=== PATIENT | female | born 1995 | race African-American/Black ===

== ENCOUNTER 2016-05-13 18:29 | Emergency (ER) | payer OTHER ==
[2016-05-13 18:38] VITALS: BMI 28.0
[2016-05-13] MEDS ORDERED: ACETAMINOPHEN 500 MG TABLET (FP) PO ONE (18:38)
--- NOTE | 2016-05-13 18:38 | PDOC ---
Rapid Medical Evaluation Time Seen by Provider: 05/13/16 18:36 Medical Evaluation: 05/13/16 18:36 20 year old 17 wks complaining of cramping abdominal pain and low back pain since yesterday. No vaginal bleeding. -UA/culture -Basic labs -To Main ED for further evaluation
[2016-05-13 19:24] LABS: BASOPHIL 0.4 % (0-2.0); EOSINOPHIL 2.5 % (0-4.5); MCH 28.9 pg (25.7-33.7); MCHC 32.9 g/dl (32.0-36.0); MEAN CELL VOLUME 87.8 fl (80-96); MEAN PLT VOLUME 9.6 fl (7.5-11.1); NEUTROPHILS 67.4 % (42.8-82.8); PLATELET COUNT 233 K/MM3 (134-434); RDW 13.5 % (11.6-15.6); WHITE BLOOD COUNT 12.4 K/mm3 (4.0-10.0)
[2016-05-13 19:32] LABS: URINE APPEARANCE CLEAR; URINE BILIRUBIN NEGATIVE (NEGATIVE); URINE BLOOD NEGATIVE (NEGATIVE); URINE COLOR STRAW; URINE GLUCOSE (UA) NEGATIVE (NEGATIVE); URINE KETONE NEGATIVE (NEGATIVE); URINE NITRITE NEGATIVE (NEGATIVE); URINE PROTEIN NEGATIVE (NEGATIVE); URINE UROBILINOGEN NEGATIVE E.U./dl (0.2-1.0)
[2016-05-13 19:44] LABS: ALBUMIN 3.2 g/dl (3.4-5.0); ALK PHOS 50 U/L (45-117); ANION GAP 10 (8-16); BILIRUBIN,TOTAL 0.1 mg/dL (0.2-1.0); CALCIUM 8.9 mg/dL (8.5-10.1); CO2 24 mmol/L (21-32); CREATININE 0.6 mg/dL (0.55-1.02); GLUCOSE,RANDOM 98 mg/dL (74-106); SGOT/AST 44 U/L (15-37); SGPT/ALT 86 U/L (12-78); TOT PROT 6.9 g/dl (6.4-8.2)
[2016-05-13 19:59] LABS: URINE LEUK ESTERASE TRACE (NEGATIVE)
[2016-05-13 20:03] LABS: URINE BACTERIA RARE /hpf (NONE SEEN); URINE RBC 2 /hpf (0-3); URINE WBC 3 /hpf (3-5)
--- NOTE | 2016-05-13 20:04 | PDOC ---
History of Present Illness - General History Source: Patient <Jory Weinsteinan - Last Filed: 05/13/16 20:12> - General History Source: Patient Exam Limitations: No Limitations - History of Present Illness Initial Comments: 05/13/16 20:16 The patient is a 20 year old female, 17 weeks (), who presents to the Emergency Department today for further evaluation of abdominal pain for 2 days. The patient describes the pain as cramping and pressurized in sensation. The patient reports associated left lower back pain. The patient denies any urinary complications or vaginal bleeding. The patient denies nausea, vomiting, diarrhea, fever. The patient denies any sick contacts or allergies. <Luis Peralta - Last Filed: 05/13/16 20:16> - General Chief Complaint: Pain Stated Complaint: BACK PAIN/17 WKS Time Seen by Provider: 05/13/16 18:36 Past History - Surgical History Abdominal Surgery: Yes (HERNIA) - Reproductive History (#): 1 Para: 0 - Psycho/Social/Smoking Cessation Hx Suicidal Ideation: No Smoking History: Never smoked Information on smoking cessation initiated: No <Noe Weinstein - Last Filed: 05/13/16 20:12> <Luis Peralta - Last Filed: 05/13/16 20:16> - Past Medical History Allergies/Adverse Reactions: Allergies Allergy/AdvReac Type Severity Reaction Status Date / Time No Known Allergies Allergy Verified 05/13/16 18:39 Home Medications: Ambulatory Orders Cephalexin Monohydrate [Keflex -] 500 mg PO BID #20 capsule 05/13/16 Review of Systems - Review of Systems Able to Perform ROS?: Yes Comments:: 05/13/16 20:16 CONSTITUTIONAL: Absent: fever, chills, diaphoresis, generalized weakness, malaise, loss of appetite HEENT: Absent: rhinorrhea, nasal congestion, throat pain, throat swelling, difficulty swallowing, mouth swelling, ear pain, eye pain, visual Changes CARDIOVASCULAR: Absent: chest pain, syncope, palpitations, irregular heart rate, lightheadedness , peripheral edema RESPIRATORY: Absent: cough, shortness of breath, dyspnea with exertion, orthopnea, wheezing, stridor, hemoptysis GASTROINTESTINAL: Present: Abdominal pain, cramping, pressure. Absent: Nausea, vomiting, diarrhea, constipation, melena, hematochezia GENITOURINARY: Absent: dysuria, frequency, urgency, hesitancy, hematuria, flank pain, genital pain MUSCULOSKELETAL: Absent: myalgia, arthralgia, joint swelling SKIN: Absent: rash, itching, pallor HEMATOLOGIC/IMMUNOLOGIC: Absent: easy bleeding, easy bruising, lymphadenopathy, frequent infections ENDOCRINE: Absent: unexplained weight gain, unexplained weight loss, heat intolerance, cold intolerance NEUROLOGIC: Absent: headache, focal weakness or paresthesias, dizziness, unsteady gait, seizure, mental status changes, bladder or bowel incontinence PSYCHIATRIC: Absent: anxiety, depression, suicidal or homicidal ideation, hallucinations. <Luis Peralta - Last Filed: 05/13/16 20:16> *Physical Exam - Vital Signs Last Vital Signs Temp Pulse Resp BP Pulse Ox 98.2 F 106 H 18 159/100 98 05/13/16 18:35 05/13/16 18:35 05/13/16 18:35 05/13/16 18:35 05/13/16 18:35 <Noe Weinstein - Last Filed: 05/13/16 20:12> - Vital Signs Last Vital Signs Temp Pulse Resp BP Pulse Ox 98.2 F 106 H 18 159/100 98 05/13/16 18:35 05/13/16 18:35 05/13/16 18:35 05/13/16 18:35 05/13/16 18:35 - Physical Exam Comments: 05/13/16 20:16 GENERAL: Well developed, well nourished. Awake and alert. In no acute distress. HEENT: Normocephalic, atraumatic. PERRLA, EOMI. No conjunctival pallor. Sclerae are non -icteric. Moist mucous membranes. Oropharynx is clear. NECK: Supple. Full ROM. No JVD. Carotid pulses 2+ and symmetric, without bruits. No thyromegaly. No lymphadenopathy. CARDIOVASCULAR: Regular rate and rhythm. No murmurs, rubs, or gallops. Distal pulses are 2+ and symmetric. PULMONARY: No evidence of respiratory distress. Lungs clear to auscultation bilaterally. No wheezing, rales or rhonchi. ABDOMINAL: Soft. Non-tender. Non-distended. No rebound or guarding. No organomegaly. Normoactive bowel sounds. PELVIC: Defer to pelvic ultrasound. MUSCULOSKELETAL Normal range of motion at all joints. No bony deformities or tenderness. No CVA tenderness. EXTREMITIES: No cyanosis. No clubbing. No edema. No calf tenderness. SKIN: Warm and dry. Normal capillary refill. No rashes. No jaundice. NEUROLOGICAL: Alert, awake, appropriate. Cranial nerves 2-12 intact. No deficits to light touch and temperature in face, upper extremities and lower extremities. No motor deficits in the in face, upper extremities and lower extremities. Normoreflexic in the upper and lower extremities. Normal speech. Toes are downgoing bilaterally. Gait is normal without ataxia. PSYCHIATRIC: Cooperative. Good eye contact. Appropriate mood and affect <Luis Peralta - Last Filed: 05/13/16 20:16> ED Treatment Course - LABORATORY CBC & Chemistry Diagram: 05/13/16 19:11 05/13/16 19:11 - ADDITIONAL ORDERS Additional order review: Laboratory Results 05/13/16 19:15 Urine Color Straw Urine Appearance Clear Urine pH 6.0 Ur Specific [place] 1.009 Urine Protein Negative Urine Glucose (UA) Negative Urine Ketones Negative Urine Blood Negative Urine Nitrite Negative Urine Bilirubin Negative Urine Urobilinogen Negative Ur Leukocyte Esterase Trace H 05/13/16 19:11 RBC 3.97 MCV 87.8 MCHC 32.9 RDW 13.5 MPV 9.6 Neutrophils % 67.4 Lymphocytes % 19.8 Monocytes % 9.9 Eosinophils % 2.5 Basophils % 0.4 - Medications Given in the ED: ED Medications Discontinued Medications Generic Name Dose Route Start Last Admin Trade Name Freq PRN Reason Stop Dose Admin Acetaminophen 975 mg 05/13/16 18:38 05/13/16 18:40 Tylenol - PO 05/13/16 18:39 975 mg ONCE ONE Administration <Noe Weinstein - Last Filed: 05/13/16 20:12> - LABORATORY CBC & Chemistry Diagram: 05/13/16 19:11 05/13/16 19:11 - ADDITIONAL ORDERS Additional order review: Laboratory Results 05/13/16 05/13/16 19:15 19:11 Sodium 138 Potassium 3.7 Chloride 104 Carbon Dioxide 24 Anion Gap 10 BUN 8 Creatinine 0.6 Creat Clearance w eGFR > 60 Random Glucose 98 Calcium 8.9 Total Bilirubin 0.1 L AST 44 H ALT 86 H Alkaline Phosphatase 50 Total Protein 6.9 Albumin 3.2 L Urine Color Straw Urine Appearance Clear Urine pH 6.0 Ur Specific [place] 1.009 Urine Protein Negative Urine Glucose (UA) Negative Urine Ketones Negative Urine Blood Negative Urine Nitrite Negative Urine Bilirubin Negative Urine Urobilinogen Negative Ur Leukocyte Esterase Trace H Urine RBC 2 Urine WBC 3 Ur Epithelial Cells Rare Urine Bacteria Rare 05/13/16 19:11 RBC 3.97 MCV 87.8 MCHC 32.9 RDW 13.5 MPV 9.6 Neutrophils % 67.4 Lymphocytes % 19.8 Monocytes % 9.9 Eosinophils % 2.5 Basophils % 0.4 - Medications Given in the ED: ED Medications Discontinued Medications Generic Name Dose Route Start Last Admin Trade Name Freq PRN Reason Stop Dose Admin Acetaminophen 975 mg 05/13/16 18:38 05/13/16 18:40 Tylenol - PO 05/13/16 18:39 975 mg ONCE ONE Administration <Luis Peralta - Last Filed: 05/13/16 20:16> Medical Decision Making - Medical Decision Making 05/13/16 20:14 Dr. Weinstein: The scribe's documentation has been prepared under my direction and personally reviewed by me in its entirery. I confirm that the note above accurately reflects all work, treatment, procedures, and medical decision making performed by me. Pt found to have an EArly UTI. Pt to be discharged. Rx Keflex 500mg PO <Noe Weinstein - Last Filed: 05/13/16 20:12> *DC/Admit/Observation/Transfer - Discharge Dispostion Admit: No <Noe Weinstein - Last Filed: 05/13/16 20:12> - Attestations Scribe Attestion: 05/13/16 20:16 Documentation prepared by Luis Peralta, acting as medical claims manager for Noe Weinstein MD/. <Luis Peralta - Last Filed: 05/13/16 20:16> Diagnosis at time of Disposition: Qualifiers: Weeks of gestation: 17 weeks Qualified Code(s): Z3A.17 - 17 weeks gestation of UTI (urinary tract infection) Qualifiers: Urinary tract infection type: site unspecified Hematuria presence: without hematuria Qualified Code(s): N39.0 - Urinary tract infection, site not specified - Discharge Dispostion Disposition: HOME Condition at time of disposition: Stable - Prescriptions Prescriptions: Cephalexin Monohydrate [Keflex -] 500 mg PO BID #20 capsule - Referrals Referrals: Philip Weiner [Primary Care Provider] - Bandar Jewell MD [Staff Physician] - - Patient Instructions Printed Discharge Instructions: DI for Urinary Tract Infection (UTI), Medications and
[2016-05-13] MEDS ORDERED: CEPHALEXIN MONOHYDRATE 500 MG CAPSULE (UD) PO ONE (20:13)
[2016-05-13] MEDS ORDERED: CEPHALEXIN MONOHYDRATE 250 MG CAPSULE (FP) ONE (20:20)
[2016-05-13 20:25] VITALS: BP 139/81; PULSE 99; TEMP 97.3
== END 2016-05-13 20:26 | disposition home or self-care (01) ==
LOC: JER 18:29
DX: O23.32 Infections of other parts of urinary tract in pregnancy, second trimester (principal); Z3A.17 17 weeks gestation of pregnancy
CPT/HCPCS: 36415; 76816-TC; 80053; 81003; 81015; 85025; 87086; 87186; 99282-25

== ENCOUNTER 2016-10-08 19:55 | Inpatient (IN) | payer OTHER ==
[2016-10-08] MEDS ORDERED: AMPICILLIN - 100 ML IVPB ONE (21:40)
[2016-10-08 21:55] LABS: BASOPHIL 0.3 % (0-2.0); EOSINOPHIL 1.6 % (0-4.5); MCH 28.5 pg (25.7-33.7); MCHC 33.4 g/dl (32.0-36.0); MEAN CELL VOLUME 85.2 fl (80-96); MEAN PLT VOLUME 10.7 fl (7.5-11.1); NEUTROPHILS 63.1 % (42.8-82.8); PLATELET COUNT 172 K/MM3 (134-434); RDW 14.4 % (11.6-15.6); WHITE BLOOD COUNT 9.9 K/mm3 (4.0-10.0)
[2016-10-08 22:25] LABS: INR 1.05 (0.82-1.09); PROTHROMBIN TIME (PATIENT) 11.6 SEC (9.98-11.88)
[2016-10-08 22:28] LABS: ACTIVATED PTT 25.4 SECONDS (26.9-34.4)
[2016-10-08 22:29] LABS: ANION GAP 10 (8-16); CALCIUM 9.1 mg/dL (8.5-10.1); CO2 24 mmol/L (21-32); CREATININE 0.5 mg/dL (0.55-1.02); GLUCOSE,RANDOM 73 mg/dL (74-106)
[2016-10-08 22:54] LABS: HIV 1 & 2 AB NEGATIVE; HIV 1 AGp24 NEGATIVE
[2016-10-08 23:06] VITALS: BMI 33.9
[2016-10-09] MEDS: AMPICILLIN - 100 ML IVPB SCH ×4 (01:40→14:10)
[2016-10-09] MEDS ORDERED: DEXTROSE 5%-LACTATED RINGERS 1,000 ML IV SCH (04:00)
[2016-10-09] MEDS ORDERED: TUBERCULIN PPD 5 TU/0.1ML SYRINGE (IN PATIENT USE ONLY) ID ONE (04:00)
[2016-10-09] MEDS ORDERED: PROMETHAZINE HCL 25 MG/1 ML VIAL IVPUSH ONE (05:14)
[2016-10-09] MEDS ORDERED: BUTORPHANOL TARTRATE 1 MG/ML VIAL IVPUSH ONE (05:14)
[2016-10-09] MEDS ORDERED: OXYTOCIN 15 UNITS/ LR 250 ML 250 ML IVPB SCH (05:15)
[2016-10-09 05:38] LABS: URINE APPEARANCE CLEAR; URINE BILIRUBIN NEGATIVE (NEGATIVE); URINE BLOOD 1+ (NEGATIVE); URINE COLOR LT. YELLOW; URINE GLUCOSE (UA) NEGATIVE (NEGATIVE); URINE KETONE NEGATIVE (NEGATIVE); URINE NITRITE NEGATIVE (NEGATIVE); URINE PROTEIN NEGATIVE (NEGATIVE); URINE UROBILINOGEN 0.2 mg/dL (0.2-1.0)
[2016-10-09 05:40] LABS: URINE LEUK ESTERASE 2+ (NEGATIVE)
[2016-10-09 05:43] LABS: URINE BACTERIA RARE /hpf (NONE SEEN); URINE MUCUS RARE; URINE RBC 4 /hpf (0-3); URINE WBC 53 /hpf (3-5)
[2016-10-09 06:03] LABS: URINE MARIJUANA THC NEGATIVE ng/ml (CUTOFF=50)
--- NOTE | 2016-10-09 10:38 | HP ---
Past Medical History - Primary Care Physician PCP:: Keon Lofton (PT was examined on 10/08/16 admitted) - Admission Chief Complaint: 40 weeks, rom History of Present Illness: 20 yo f g1 po , care in [facility] c/o [place] clear fluid , mild cramps , no fever, cx 1 cm 75 vx -3 mr , nitrazine posive, clear fluid, fhr cat 1, irregular contraction History Source: Patient Limitations to Obtaining History: No Limitations - Past Medical History ...: 1 ...Para: 0 ...Term: 0 ...: 0 ...Spon : 0 ...Induced : 0 ...Multiple Gestation: 0 ...LMP: 02/02/16 ... Weeks Gestation by Dates: 40 ...EDC by Dates: 10/08/16 - Past Surgical History Hx Myomectomy: No Hx Transabdominal Cerclage: No - Smoking History Smoking history: Unknown if ever smoked Have you smoked in the past 12 months: No - Alcohol/Substance Use Hx Alcohol Use: No - Social History Usual Living Arrangement: Yes: With Spouse History of Recent Travel: No Home Medications - Allergies Allergies/Adverse Reactions: Allergies Allergy/AdvReac Type Severity Reaction Status Date / Time No Known Allergies Allergy Verified 05/13/16 18:39 - Home Medications Home Medications: Ambulatory Orders Cephalexin Monohydrate [Keflex -] 500 mg PO BID #20 capsule 05/13/16 Vit #108/Iron/FA [ One Tablet] 1 tab PO DAILY 10/09/16 Ibuprofen [Motrin -] 600 mg PO QID #28 tablet 10/10/16 Review of Systems - Review of Systems Constitutional: reports: No Symptoms Eyes: reports: No Symptoms HENT: reports: No Symptoms Neck: reports: No Symptoms Cardiovascular: reports: No Symptoms Respiratory: reports: No Symptoms Gastrointestinal: reports: No Symptoms Genitourinary: reports: No Symptoms Breasts: reports: No Symptoms Reported Musculoskeletal: reports: No Symptoms Integumentary: reports: No Symptoms Neurological: reports: No Symptoms Endocrine: reports: No Symptoms Hematology/Lymphatic: reports: No Symptoms Psychiatric: reports: No Symptoms Physical Exam - Maternity Vital Signs: Vital Signs Temperature 98.2 F 10/09/16 08:00 Pulse Rate 94 H 10/09/16 09:00 Respiratory Rate 20 10/09/16 09:00 Blood Pressure 119/84 10/09/16 09:00 O2 Sat by Pulse Oximetry (%) Constitutional: Yes: Well Nourished, No Distress, Calm Eyes: Yes: WNL, Conjunctiva Clear, EOM Intact HENT: Yes: WNL, Atraumatic, Normocephalic Neck: Yes: WNL, Supple, Trachea Midline Cardiovascular: Yes: WNL, Regular Rate and Rhythm Breast(s): Yes: WNL - Abdominal Exam/OB Fundal Height: 40 Number of Fetuses: Single Presentation: Vertex Contractions: Yes Regularity: Irregular Intensity: Moderate Monitor Mode: External Heart Rate Location: [facility] Category: I Accelerations: Uniform Decelerations: None - Vaginal Exam/OB Vaginal Bleediing: No Speculum Exam: Yes (gross AF leakage) Dilatation (cm): 1 cm Effacement (%): 70 Amniotic Membrane Status: Ruptured Nitrazine Test: Positive Amniotic Fluid: Yes: Clear Presentation: Vertex/Position Station: -3 - Physical Exam Musculoskeletal: Yes: WNL Edema: LLE: Trace, RLE: Trace Psychiatric: Yes: WNL - Labs Lab Results: CBC, BMP 10/08/16 21:20 10/08/16 21:20 Problem List - Problems (1) 40 weeks gestation of Code(s): Z3A.40 - 40 WEEKS GESTATION OF (2) membrane rupture Code(s): [id number] - Assessment/Plan admit, fh monitoring, iv antibiotics , GBS not known, expectant management
[2016-10-09] MEDS: FENTANYL/BUPIVACAINE/NS/PF - PCEA - 50 ML DISP.SYRIN EP SCH (12:30)
--- NOTE | 2016-10-09 12:31 | PN ---
Progress Note (short form) - Note Progress Note: cx 5 cm 75 vx -2 mr. fhr cat 1wanrs epidural Problem List - Problems (1) 40 weeks gestation of Code(s): Z3A.40 - 40 WEEKS GESTATION OF (2) membrane rupture Code(s): KDA9619 -
[2016-10-09] MEDS: D5W-LR W/ 20 UNITS OXYTOCIN 1,000 ML IV SCH ×2 (15:40→17:07)
[2016-10-09] MEDS ORDERED: BENZOCAINE 28 GM HEMORRHOIDAL OINTMENT TP PRN (15:57)
[2016-10-09] MEDS ORDERED: WITCH HAZEL 50% (TUCKS) 40 PAD/JAR PAD TP PRN (15:57)
[2016-10-09] MEDS ORDERED: oxyCODONE HCL 5 MG TABLET PO PRN (15:57)
[2016-10-09] MEDS ORDERED: BISACODYL 10 MG SUPP.RECT RC PRN (15:57)
[2016-10-09] MEDS ORDERED: BENZOCAINE 20% 57 GM BOTTLE TP PRN (15:57)
[2016-10-09] MEDS ORDERED: METHYLERGONOVINE MALEATE 0.2 MG/1 ML AMP IM PRN (15:57)
[2016-10-09] MEDS: IBUPROFEN 600 MG TABLET (FP) PO PRN ×2 (16:18→21:52)
[2016-10-09] MEDS: ACETAMINOPHEN 325 MG TABLET (FP) PO PRN ×2 (16:18→21:52)
[2016-10-09 16:20] LABS: ARTERIAL BLD GAS O2 SATURATION 37.9 % (90-98.9); ARTERIAL BLOOD GAS BASE EXCESS 0.3 meq/l (-2-2); ARTERIAL BLOOD GAS HCO3 27.7 meq/L (22-26); ARTERIAL BLOOD GAS PO2 21.8 mmHg (80-100); ARTERIAL BLOOD GAS pH 7.31 (7.35-7.45)
[2016-10-09 16:26] LABS: VENOUS PH 7.37 (7.32-7.42)
[2016-10-09] MEDS: FERROUS SO4 325 MG TABLET (FP) PO SCH (21:51)
[2016-10-10] MEDS: AMPICILLIN - 100 ML IVPB SCH ×2 (02:07→02:55)
[2016-10-10] MEDS: ACETAMINOPHEN 325 MG TABLET (FP) PO PRN ×2 (08:29→23:41)
[2016-10-10] MEDS: FERROUS SO4 325 MG TABLET (FP) PO SCH ×2 (08:29→17:58)
[2016-10-10] MEDS: IBUPROFEN 600 MG TABLET (FP) PO PRN ×2 (08:30→23:41)
[2016-10-10] MEDS: PRENATAL VITAMINS W/ FOLIC ACID TABLET (FP) PO SCH (09:44)
[2016-10-10 11:14] LABS: BASOPHIL 0.4 % (0-2.0); EOSINOPHIL 1.2 % (0-4.5); MCH 28.1 pg (25.7-33.7); MCHC 32.9 g/dl (32.0-36.0); MEAN CELL VOLUME 85.3 fl (80-96); MEAN PLT VOLUME 10.8 fl (7.5-11.1); NEUTROPHILS 69.6 % (42.8-82.8); PLATELET COUNT 192 K/MM3 (134-434); RDW 14.8 % (11.6-15.6); WHITE BLOOD COUNT 11.5 K/mm3 (4.0-10.0)
--- NOTE | 2016-10-10 12:26 | PN ---
Progress Note (short form) - Note Progress Note: ppd 1 doing well, no c/o no excess vaginal bleeding CBC, BMP 10/10/16 10:48 10/08/16 21:20 Last Vital Signs Temp Pulse Resp BP Pulse Ox 98.2 F 97 H 20 109/71 100 10/10/16 02:00 10/10/16 02:00 10/10/16 02:00 10/10/16 02:00 10/09/16 16:45 abdomen soft, non tender ,uterus firm lochia mild no calf tenderness plan ambulate, advance diet Problem List - Problems (1) 40 weeks gestation of Code(s): Z3A.40 - 40 WEEKS GESTATION OF (2) membrane rupture Code(s): [id number] -
[2016-10-10] MEDS: FENTANYL/BUPIVACAINE/NS/PF - PCEA - 50 ML DISP.SYRIN EP SCH (19:07)
--- NOTE | 2016-10-11 07:54 | DS ---
Physical Exam-ROLLOUT MANAGER Vital Signs: Vital Signs Temperature 98.6 F 10/10/16 22:00 Pulse Rate 88 10/10/16 22:00 Respiratory Rate 18 10/10/16 22:00 Blood Pressure 127/63 10/10/16 22:00 O2 Sat by Pulse Oximetry (%) 100 10/09/16 16:45 Constitutional: Yes: Well Nourished, No Distress, Calm Eyes: Yes: WNL, Conjunctiva Clear, EOM Intact HENT: Yes: WNL, Atraumatic, Normocephalic Neck: Yes: WNL, Supple, Trachea Midline Cardiovascular: Yes: WNL, Regular Rate and Rhythm Respiratory: Yes: WNL, Regular, CTA Bilaterally Gastrointestinal: Yes: WNL ...Rectal Exam: Yes: WNL Renal/: Yes: WNL ....Post : Yes: Uterus firm, Uterus non-tender, Slight lochia rubra Breast(s): Yes: WNL Musculoskeletal: Yes: WNL Extremities: Yes: WNL Integumentary: Yes: WNL Neurological: Yes: WNL, Alert, Oriented ...Motor Strength: WNL Psychiatric: Yes: WNL, Alert, Oriented Labs: CBC, BMP 10/10/16 10:48 10/08/16 21:20 Delivery - Delivery Vaginal Delivery: Spontaneous (no complication) Type of Anesthesia: Local, Epidural Episiotomy/Laceration: Midline EBL (cc): 300 Delivery, Single - Stages of Labor Date 1st Stage Initiatied: 10/08/16 Time 1st Stage Initiated: 19:00 Date 2nd Stage Initiated: 10/09/16 Time 2nd Stage Initiated: 15:30 Date of Delivery: 10/09/16 Time of Delivery: 15:37 Time Placenta Delivered: 15:40 Placenta: Yes: Spontaneous - Condition of Infant Escort Car Driver/Special Events Planner Present: No Gender: Male Weight: 8 lb 6 oz Position: Left, OA Total Hours ROM (Hrs/Mins): 20hrs 40min - 1 Minute Total Score: 9 5 Minutes Total Score: 10 - Feeding Plan Initial Plan: Elected not to breastfeed exclusively throughout hospitalization Discharge Summary Reason For Visit: LABOR Current Active Problems 40 weeks gestation of (Acute) membrane rupture (Acute) Procedures: Principal: Hospital Course: uneventful Condition: Good - Instructions Diet, Activity, Other Instructions: regular diet, follow up [facility] 4weeks Referrals: Keon Lofton MD [Staff Physician] - Disposition: HOME - Home Medications Comprehensive Discharge Medication List: Ambulatory Orders Cephalexin Monohydrate [Keflex -] 500 mg PO BID #20 capsule 05/13/16 Vit #108/Iron/FA [ One Tablet] 1 tab PO DAILY 10/09/16 Ibuprofen [Motrin -] 600 mg PO QID #28 tablet 10/10/16
[2016-10-11] MEDS: FERROUS SO4 325 MG TABLET (FP) PO SCH (08:00)
[2016-10-11] MEDS: PRENATAL VITAMINS W/ FOLIC ACID TABLET (FP) PO SCH (09:20)
[2016-10-11 11:51] VITALS: BP 111/67; PULSE 83; TEMP 98.4
[2016-10-11] MEDS ORDERED: SENNOSIDES/DOCUSATE COMBO (SENNA PLUS) TABLET (UD) PO PRN (22:00)
== END 2016-10-11 13:15 | disposition home or self-care (01) | DRG 560 ==
LOC: JLDR 19:55 → J3W 10-09 17:20
PROVIDERS: ADMIT Obstetrics & Gynecology; ATTEND Obstetrics & Gynecology
PROC: 10E0XZZ Delivery of Products of Conception, External Approach (ICD-10-PCS; principal; 2016-10-09)
PROC: 0W8NXZZ Division of Female Perineum, External Approach (ICD-10-PCS; 2016-10-09)
PROC: 30233S1 Transfusion of Nonautologous Globulin into Peripheral Vein, Percutaneous Approach (ICD-10-PCS; 2016-10-10)
DX: O48.0 Post-term pregnancy (principal); Z3A.40 40 weeks gestation of pregnancy; Z37.0 Single live birth
CPT/HCPCS: 36415; 36600; 59409; 80048; 80307; 81003; 81015; 82803; 85025; 85461; 85610; 85730; 86593; 86762; 86850; 86900; 86901; 86999; 87340; 87389

== ENCOUNTER 2017-01-19 08:25 | Emergency (ER) | payer OTHER ==
[2017-01-19 08:47] VITALS: BP 131/87; PULSE 93; TEMP 98.9; BMI 28.2
--- NOTE | 2017-01-19 09:09 | PDOC ---
History of Present Illness - General Chief Complaint: Shoulder Dislocation Stated Complaint: DISLOCATED RT SHOULDER Time Seen by Provider: 01/19/17 08:57 History Source: Patient Exam Limitations: No Limitations - History of Present Illness Initial Comments: 01/19/17 16:38 21 yr female BBEMS for right shoulder pain. Pt states she rolled over last night felt her shoulder "pop out" she popped it back in. Pt states history of frequent shoulder dislocations. Pt has FROM on arrival. Occurred: reports: this morning Severity: reports: mild Upper Extremity Pain Location: right: shoulder Past History - Past Medical History Allergies/Adverse Reactions: Allergies Allergy/AdvReac Type Severity Reaction Status Date / Time No Known Allergies Allergy Verified 01/19/17 08:35 Home Medications: Ambulatory Orders NK [No Known Home Medication] 01/19/17 Asthma: No Cancer: No Cardiac Disorders: No COPD: No DVT: No Diabetes: No HTN: No Seizures: No Thyroid Disease: No - Surgical History Abdominal Surgery: Yes (HERNIA) - Reproductive History (#): 1 Para: 0 - Immunization History Immunization Up to Date: Yes - Suicide/Smoking/Psychosocial Hx Smoking History: Unknown if ever smoked Have you smoked in the past 12 months: No Information on smoking cessation initiated: No Hx Alcohol Use: No Drug/Substance Use Hx: No Substance Use Type: None Hx Substance Use Treatment: No Review of Systems - Review of Systems Able to Perform ROS?: Yes Is the patient limited Welsh proficient: No Constitutional: No: Symptoms Reported HEENTM: No: Symptoms Reported Respiratory: No: Symptoms reported Cardiac (ROS): No: Symptoms Reported ABD/GI: No: Symptoms Reported : No: Symptoms Reported Musculoskeletal: Yes: Symptoms Reported *Physical Exam - Vital Signs Last Vital Signs Temp Pulse Resp BP Pulse Ox 98.9 F 93 H 17 131/87 99 01/19/17 08:35 01/19/17 08:35 01/19/17 08:35 01/19/17 08:35 01/19/17 08:35 - Physical Exam General Appearance: Yes: Nourished HEENT: positive: EOMI, LILIAN Neck: positive: Supple Respiratory/Chest: positive: Lungs Clear, Normal Breath Sounds Cardiovascular: positive: Regular Rhythm, Regular Rate Extremity: positive: Normal Capillary Refill, Normal Inspection, Normal Range of Motion, Other (right shoulder without obvious trauma, FROM of the arm no limitations, nv intact. ). negative: Tender, Swelling, Inflammation Integumentary: positive: Normal Color, Dry, Warm Neurologic: positive: Fully Oriented, Alert, Normal Mood/Affect, Normal Response , Motor Strength 5/5 Procedures - Splinting Sling: Yes (right arm sling ) Medical Decision Making - Medical Decision Making 01/19/17 16:39 cc: right shoulder pain after "popped out" pt states this is a common occurrence has not seen an orthopedist. will place sling, pt has FROM no limitations nv intact, no bony tenderness refer to ortho pt agrees with plan all questions asked and answered *DC/Admit/Observation/Transfer Diagnosis at time of Disposition: Right shoulder strain Qualifiers: Encounter type: initial encounter Qualified Code(s): S46.911A - Strain of unspecified muscle, fascia and tendon at shoulder and upper arm level, right arm , initial encounter - Discharge Dispostion Disposition: HOME Condition at time of disposition: Improved - Referrals Referrals: Bib Rivera MD [Staff Physician] - Kennedy Harrell MD [Staff Physician] - - Patient Instructions Printed Discharge Instructions: How to Use a Sling Additional Instructions: follow up with the orthopedist Dr. Harrell or or for follow up call today to make appointment make sure thry take your insurance use the sling at all times except to bathe and sleep but you should use it during the day for the next 3-5 days apply ice to the area every 2hrs for 20 minutes while awake for the next 2 days take motrin (over the counter ibuprofen, advil or motrin) 400mg-600mg as needed every 6hrs for pain return if any worsening symptoms - Post Discharge Activity
[2017-01-19] MEDS ORDERED: IBUPROFEN 400 MG TABLET (FP) PO ONE (09:12)
[2017-01-19] MEDS ORDERED: IBUPROFEN 600 MG TABLET (FP) PO ONE (09:12)
== END 2017-01-19 09:17 | disposition home or self-care (01) ==
LOC: JERFT 08:25
DX: S46.811A Strain of other muscles, fascia and tendons at shoulder and upper arm level, right arm, initial encounter (principal); X50.1XXA Overexertion from prolonged static or awkward postures, initial encounter; Y93.89 Activity, other specified; Y92.032 Bedroom in apartment as the place of occurrence of the external cause
CPT/HCPCS: 99281-25

== ENCOUNTER 2017-06-07 12:18 | Emergency (ER) | payer OTHER ==
[2017-06-07 12:38] VITALS: BP 121/75; PULSE 103; TEMP 98.3; BMI 29.0
[2017-06-07] MEDS ORDERED: ACETAMINOPHEN 500 MG TABLET (FP) PO ONE (13:49)
[2017-06-07] MEDS ORDERED: ACETAMINOPHEN 325 MG TABLET (FP) ONE (13:53)
[2017-06-07 13:59] LABS: URINE APPEARANCE CLEAR; URINE BILIRUBIN NEGATIVE (<2.0 mg/dL); URINE BLOOD NEGATIVE (NEGATIVE); URINE COLOR YELLOW; URINE GLUCOSE (UA) NEGATIVE (NEGATIVE); URINE KETONE NEGATIVE (NEGATIVE); URINE LEUK ESTERASE NEGATIVE (NEGATIVE); URINE NITRITE NEGATIVE (NEGATIVE); URINE PROTEIN NEGATIVE (NEGATIVE); URINE UROBILINOGEN NEGATIVE mg/dL (0.2-1.0)
[2017-06-07 14:03] LABS: HCG,QUALITATIVE URINE NEGATIVE
--- NOTE | 2017-06-07 14:15 | PDOC ---
History of Present Illness - General Chief Complaint: Pain, Acute Stated Complaint: DIZZINESS, ABD PAIN Time Seen by Provider: 06/07/17 12:58 History Source: Patient Exam Limitations: No Limitations - History of Present Illness Initial Comments: 06/07/17 13:09 21-year-old female with no past medical history presents to the ED with complaints of generalized abdominal cramping for the past 3-4 days associated with myalgia, chills 2 episodes of loose stool, and mild frontal headache. Patient also states was concerned that she might be but took a home test which was negative. Patient denies sore throat, ear pain, chest pain, shortness of breath, cough, nausea, vomiting, urinary complaints or rash. Patient does state had a UTI approximately 2 weeks ago but completed the antibiotics and has no complaints Timing/Duration: other Severity: moderate Associated Symptoms: reports: fever/chills (myalgia), headaches (mild frontal). denies: nausea/vomiting, shortness of breath Past History - Travel Traveled outside of the country in the last 30 days: No - Past Medical History Allergies/Adverse Reactions: Allergies Allergy/AdvReac Type Severity Reaction Status Date / Time No Known Allergies Allergy Verified 06/07/17 12:38 Home Medications: Ambulatory Orders NK [No Known Home Medication] 01/19/17 Asthma: No Cancer: No Cardiac Disorders: No COPD: No DVT: No Diabetes: No HTN: No Seizures: No Thyroid Disease: No - Surgical History Abdominal Surgery: Yes (HERNIA) - Reproductive History (#): 1 Para: 0 - Immunization History Immunization Up to Date: Yes - Suicide/Smoking/Psychosocial Hx Smoking History: Never smoked Have you smoked in the past 12 months: No Hx Alcohol Use: No Drug/Substance Use Hx: No Substance Use Type: None Hx Substance Use Treatment: No Patient Lives Alone: No Lives with/in: parents Review of Systems - Review of Systems Able to Perform ROS?: No Constitutional: Yes: Chills, Weakness. No: Fever, Loss of Appetite HEENTM: No: Symptoms Reported Respiratory: No: Symptoms reported Cardiac (ROS): No: Symptoms Reported ABD/GI: Yes: Diarrhea, Abdominal cramping. No: Poor Appetite, Poor Fluid Intake : No: Symptoms Reported Musculoskeletal: Yes: Joint Pain ( generalized), Muscle Pain (generalized) Neurological: Yes: Headache (frontal throbbing mild) Hematologic/Lymphatic: No: Symptoms Reported *Physical Exam - Vital Signs Last Vital Signs Temp Pulse Resp BP Pulse Ox 98.3 F 103 H 16 121/75 100 06/07/17 12:35 06/07/17 12:35 06/07/17 12:35 06/07/17 12:35 06/07/17 12:35 - Physical Exam General Appearance: Yes: Nourished, Appropriately Dressed. No: Apparent Distress HEENT: positive: LILIAN, TMs Normal, Pharyngeal Erythema (3 + tonsills jhon). negative: EOMI, Pale Conjunctivae Neck: positive: Supple, Lymphadenopathy (R), Lymphadenopathy (L) (upper cervical ) Respiratory/Chest: positive: Lungs Clear, Normal Breath Sounds. negative: Respiratory Distress, Accessory Muscle Use Cardiovascular: positive: Regular Rhythm, Tachycardia. negative: Murmur Gastrointestinal/Abdominal: positive: Soft, Tenderness (mild epigastric, no ruq or rlq tenderness) Integumentary: positive: Normal Color, Warm, Moist Neurologic: positive: Motor Strength 5/5 (ambulatory) ED Treatment Course - ADDITIONAL ORDERS Additional order review: Laboratory Results 06/07/17 13:44 Urine Color Yellow Urine Appearance Clear Urine pH 6.0 Ur Specific [place] 1.019 Urine Protein Negative Urine Glucose (UA) Negative Urine Ketones Negative Urine Blood Negative Urine Nitrite Negative Urine Bilirubin Negative Urine Urobilinogen Negative Ur Leukocyte Esterase Negative Urine HCG, Qual Negative - Medications Given in the ED: ED Medications Discontinued Medications Generic Name Dose Route Start Last Admin Trade Name Freq PRN Reason Stop Dose Admin Acetaminophen 975 mg 06/07/17 13:49 06/07/17 13:54 Tylenol - PO 06/07/17 13:50 975 mg ONCE ONE Administration Medical Decision Making - Medical Decision Making 06/07/17 13:17 Patient here with various complaints including generalized abdominal cramping with epigastric tenderness on exam. Patient also with complaints of mild frontal headache with no neural findings. Patient also complaining of myalgia or arthralgia with loose stool 2. Patient with pharyngeal erythema. Patient ordered a urinalysis urine to rule out UTI to to recent infection along with . Patient also ordered for rapid sharp secondary to pharyngeal erythema and influenza secondary to myalgia or arthralgia and prevalence of influenza the presently 06/07/17 14:19 Laboratory Tests 06/07/17 13:44 Urine Glucose (UA) Negative Urine Ketones Negative Urine Nitrite Negative Ur Leukocyte Esterase Negative Urine HCG, Qual Negative 06/07/17 14:36 Influenza -. 06/07/17 14:56 strep -. 06/07/17 15:35 Labs pending. pt states can not wait due to childcare. Pt will sign out AMA *DC/Admit/Observation/Transfer Diagnosis at time of Disposition: Myalgia, Epigastric abdominal pain - Discharge Dispostion Disposition: AGAINST MEDICAL ADVICE Condition at time of disposition: Unchanged/Unknown - Referrals - Patient Instructions Printed Discharge Instructions: DI for Viral Syndrome Additional Instructions: Your strep and influenza along with urine were -. Your labs are pending. I recommend that you take motrin for discomfort, drink plenty of fluids, and eat bland foods x 72 hrs. You may return to the Ed at any given time. - Post Discharge Activity
[2017-06-07 16:06] LABS: BASO % 0.4 % (0-2.0); EOS % 1.6 % (0-4.5); HEMATOCRIT 39.4 % (32.4-45.2); HEMOGLOBIN 13.4 GM/dL (10.7-15.3); LYMPH % 16.5 % (8-40); MCH 29.2 pg (25.7-33.7); MCHC 33.9 g/dl (32.0-36.0); MEAN CELL VOLUME 86.2 fl (80-96); MEAN PLT VOLUME 10.3 fl (7.5-11.1); MONO % 8.9 % (3.8-10.2); NEUT % 72.6 % (42.8-82.8); PLATELET COUNT 259 K/MM3 (134-434); RBC 4.57 M/mm3 (3.60-5.2); RDW 14.3 % (11.6-15.6); WHITE BLOOD COUNT 10.2 K/mm3 (4.0-10.0)
[2017-06-07 16:09] LABS: ALBUMIN 3.7 g/dl (3.4-5.0); ALK PHOS 76 U/L (45-117); ANION GAP 5 (8-16); BILIRUBIN,TOTAL 0.2 mg/dL (0.2-1.0); BLOOD UREA NITROGEN 10 mg/dL (7-18); CALCIUM 8.4 mg/dL (8.5-10.1); CHLORIDE 109 mmol/L (98-107); CO2 26 mmol/L (21-32); CREATININE 0.7 mg/dL (0.55-1.02); GLUCOSE,RANDOM 88 mg/dL (74-106); SGOT/AST 15 U/L (15-37); SGPT/ALT 19 U/L (12-78); SODIUM 140 mmol/L (136-145); TOT PROT 7.5 g/dl (6.4-8.2)
== END 2017-06-07 15:38 | disposition left against medical advice (07) ==
LOC: JER 12:18
DX: R10.13 Epigastric pain (principal); M79.1 Myalgia; L54 Erythema in diseases classified elsewhere
CPT/HCPCS: 36415; 80053; 81003; 84703; 85025; 87070; 87430; 87804; 99282-25

== ENCOUNTER 2018-03-15 15:48 | Emergency (ER) | payer OTHER ==
[2018-03-15 16:05] VITALS: BP 117/71; PULSE 89; TEMP 98.1; BMI 28.2
[2018-03-15] MEDS ORDERED: IBUPROFEN 600 MG TABLET (FP) PO ONE ×2 (16:49→16:59)
--- NOTE | 2018-03-15 16:56 | PDOC ---
History of Present Illness - General Chief Complaint: Pain, Acute Stated Complaint: RT WRIST PAIN Time Seen by Provider: 03/15/18 16:34 History Source: Patient Exam Limitations: No Limitations Past History - Past Medical History Allergies/Adverse Reactions: Allergies Allergy/AdvReac Type Severity Reaction Status Date / Time No Known Allergies Allergy Verified 03/15/18 16:32 Home Medications: Ambulatory Orders NK [No Known Home Medication] 03/15/18 Asthma: No Cancer: No Cardiac Disorders: No COPD: No DVT: No Diabetes: No HTN: No Seizures: No Thyroid Disease: No - Surgical History Abdominal Surgery: Yes (HERNIA) - Reproductive History (#): 1 Para: 0 - Immunization History Immunization Up to Date: Yes - Suicide/Smoking/Psychosocial Hx Smoking History: Never smoked Have you smoked in the past 12 months: No Number of Cigarettes Smoked Daily: 1 Information on smoking cessation initiated: No Hx Alcohol Use: No Drug/Substance Use Hx: No Substance Use Type: None Hx Substance Use Treatment: No *Physical Exam - Vital Signs Last Vital Signs Temp Pulse Resp BP Pulse Ox 98.1 F 89 18 117/71 99 03/15/18 16:02 03/15/18 16:02 03/15/18 16:02 03/15/18 16:02 03/15/18 16:02 - Physical Exam General Appearance: No: Apparent Distress Musculoskeletal: positive: Other (No deformity or swelling of R wrist, no change in skin color, no snuffbox tenderness, mild pain with extension and flexion of R wrist, no pain along finger joints) Integumentary: positive: Normal Color Neurologic: positive: Fully Oriented, Alert, Normal Mood/Affect Moderate Sedation - Procedure Monitoring Vital Signs: Procedure Monitoring Vital Signs Temperature 98.1 F 03/15/18 16:02 Pulse Rate 89 03/15/18 16:02 Respiratory Rate 18 03/15/18 16:02 Blood Pressure 117/71 03/15/18 16:02 O2 Sat by Pulse Oximetry (%) 99 03/15/18 16:02 Medical Decision Making - Medical Decision Making 22 y/o F with no sig pmh, R-handed, presents with chronic R wrist pain for >1 year, worsening yesterday. Took Advil yesterday without relief. Has not yet seen anyone regarding this pain. 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 Likely tendonitis R wrist nevaeh-wrapped for support; advised to get wrist splint 03/15/18 16:53 *DC/Admit/Observation/Transfer Diagnosis at time of Disposition: Right wrist tendonitis - Discharge Dispostion Disposition: HOME Condition at time of disposition: Stable Decision to Admit order: No - Referrals Referrals: Philip Weiner [Primary Care Provider] - Remberto Verduzco DO [Staff Physician] - Call tomorrow - Patient Instructions Printed Discharge Instructions: DI for Tendinitis Additional Instructions: Thank you for choosing [facility]. It was a pleasure taking care of you. Likely you have wrist tendonitis. You may take Tylenol 650 mg or Motrin 600 mg every 4 hours by mouth as needed for mild to moderate pain. Take Motrin with food. Do not take more than 4000 mg of Tylenol in 1 day. Recommend using a wrist splint for better support of wrist. You were referred to orthopedics - please call for follow-up Return to the Emergency Department if your symptoms worsen or persist or have other concerning symptoms. - Post Discharge Activity Forms/Work/School Notes: Back to Work
== END 2018-03-15 17:08 | disposition home or self-care (01) ==
LOC: JERFT 15:48
PROC: 2W3CX1Z Immobilization of Right Lower Arm using Splint (ICD-10-PCS; principal; 2018-03-15)
DX: M77.9 Enthesopathy, unspecified (principal)
CPT/HCPCS: 29125; 99281-25

== ENCOUNTER 2018-07-28 01:17 | Emergency (ER) | payer OTHER ==
[2018-07-28 01:42] VITALS: BP 130/90; PULSE 110; TEMP 98.5; BMI 24.2
[2018-07-28] MEDS ORDERED: ALBUTEROL SO4 2.5/IPRATROPIUM 0.5 INH SOL 3 ML VIAL.NEB. NEB ONE ×4 (02:17→02:58)
--- NOTE | 2018-07-28 02:41 | PDOC ---
History of Present Illness - General Chief Complaint: Cold Symptoms Stated Complaint: CONGESTION Time Seen by Provider: 07/28/18 02:19 - History of Present Illness Initial Comments: 07/28/18 02:37 22f with pmh of bronchitis, presetns to the ed for cold symptoms, cough, sob with wheezing since yesterday. Son is sick with similar symptoms. Had sore throat yesterday which resolved after taking advil. . No flu shot this year. No fever, but felt possibly some chills last night. Past History - Past Medical History Allergies/Adverse Reactions: Allergies Allergy/AdvReac Type Severity Reaction Status Date / Time No Known Allergies Allergy Verified 07/28/18 01:40 Home Medications: Ambulatory Orders Acetaminophen [Tylenol] 650 mg PO PRN PRN 07/28/18 Albuterol Sulfate Inhaler - [Ventolin HFA Inhaler -] 1 - 2 inh PO Q4H #1 inhaler 07/28/18 Asthma: No Cancer: No Cardiac Disorders: No COPD: No DVT: No Diabetes: No HTN: No Seizures: No Thyroid Disease: No - Surgical History Abdominal Surgery: Yes (HERNIA) - Reproductive History (#): 1 Para: 0 - Immunization History Immunization Up to Date: Yes - Suicide/Smoking/Psychosocial Hx Smoking History: Never smoked Have you smoked in the past 12 months: No Number of Cigarettes Smoked Daily: 1 Information on smoking cessation initiated: No Hx Alcohol Use: No Drug/Substance Use Hx: No Substance Use Type: None Hx Substance Use Treatment: No Review of Systems - Review of Systems Able to Perform ROS?: Yes Is the patient limited [place]ian proficient: No Constitutional: Yes: See HPI HEENTM: Yes: Nose Congestion, Throat Pain, Throat Swelling. No: Difficulty Swallowing Respiratory: Yes: Cough, Wheezing Cardiac (ROS): No: Symptoms Reported ABD/GI: No: Symptoms Reported : No: Symptoms Reported Musculoskeletal: No: Symptoms Reported All Other Systems: Reviewed and Negative *Physical Exam - Vital Signs Last Vital Signs Temp Pulse Resp BP Pulse Ox 98.5 F 110 H 20 130/90 98 07/28/18 01:40 07/28/18 01:40 07/28/18 01:40 07/28/18 01:40 07/28/18 01:40 - Physical Exam General Appearance: Yes: Nourished, Appropriately Dressed. No: Apparent Distress HEENT: positive: EOMI, LILIAN, Tonsillar Erythema (and swelling). negative: Tonsillar Exudate Respiratory/Chest: positive: Lungs Clear, Normal Breath Sounds. negative: Chest Tender, Respiratory Distress Cardiovascular: positive: Regular Rhythm, S1, S2, Tachycardia Gastrointestinal/Abdominal: positive: Normal Bowel Sounds, Flat, Soft. negative : Tender Musculoskeletal: positive: Normal Inspection. negative: CVA Tenderness Extremity: positive: Normal Capillary Refill, Normal Inspection, Normal Range of Motion Integumentary: positive: Normal Color, Dry, Warm Neurologic: positive: Fully Oriented, Alert, Normal Mood/Affect ED Treatment Course - Medications Given in the ED: ED Medications Discontinued Medications Generic Name Dose Route Start Last Admin Trade Name Freq PRN Reason Stop Dose Admin Albuterol/Ipratropium 1 amp 07/28/18 02:20 07/28/18 02:21 Duoneb - NEB 07/28/18 02:21 1 amp ONCE ONE Administration Medical Decision Making - Medical Decision Making 07/28/18 02:42 22f with cold symptoms and wheezing. No asthma pmh. Will give duoneb and check for strep. Reassess, dispo 07/28/18 03:17 Still wheezin although much less than at presentation. One more duoneb then send home with inhaler prescription *DC/Admit/Observation/Transfer Diagnosis at time of Disposition: Acute viral tonsillitis, Wheezing on auscultation - Discharge Dispostion Disposition: HOME Condition at time of disposition: Improved Decision to Admit order: No - Prescriptions Prescriptions: Albuterol Sulfate Inhaler - [Ventolin HFA Inhaler -] 1 - 2 inh PO Q4H #1 inhaler - Referrals Referrals: Philip Weiner [Primary Care Provider] - - Patient Instructions Printed Discharge Instructions: DI for Acute Bronchitis, DI for Common Cold Additional Instructions: Come back to the emergency department for any new, worsening or concerning symptom. Follow up with your primary care provider within the next 3-4 days. - Post Discharge Activity
--- NOTE | 2018-07-28 03:33 | PDOC ---
Attending Attestation - Resident Resident Name: Migue Lu - ED Attending Attestation I have performed the following: I have examined & evaluated the patient, The case was reviewed & discussed with the resident, I agree w/resident's findings & plan, Exceptions are as noted - HPI HPI: 07/28/18 04:37 22F pmh bronchitis here with cough, congestion, sob for a day. Pt's son has similar symptoms. - Physicial Exam PE: 07/28/18 04:37 Agree with exam as documented by resident - Medical Decision Making 07/28/18 04:38 Likely URI exam and hpi treat symptomatically re-eval symptomatic improvement dc home with instructions on symptom management and return guidelines
== END 2018-07-28 03:37 | disposition home or self-care (01) ==
LOC: JER 01:17
PROC: 3E0F7GC Introduction of Other Therapeutic Substance into Respiratory Tract, Via Natural or Artificial Opening (ICD-10-PCS; principal; 2018-07-28)
DX: R06.2 Wheezing (principal); J03.80 Acute tonsillitis due to other specified organisms; B97.89 Other viral agents as the cause of diseases classified elsewhere
CPT/HCPCS: 87070; 87880; 94640; 99282-25

== ENCOUNTER 2018-07-29 01:34 | Emergency (ER) | payer OTHER ==
[2018-07-29 01:54] VITALS: TEMP 98.1; BMI 25.3
[2018-07-29] MEDS ORDERED: ALBUTEROL SO4 2.5/IPRATROPIUM 0.5 INH SOL 3 ML VIAL.NEB. NEB ONE ×3 (01:56→02:34)
--- NOTE | 2018-07-29 01:59 | PDOC ---
History of Present Illness - General Chief Complaint: Shortness of Breath Stated Complaint: BRONCHITIS/SOB Time Seen by Provider: 07/29/18 01:59 History Source: Patient Exam Limitations: No Limitations - History of Present Illness Initial Comments: 07/29/18 02:11 22 year old female with PMH bronchitis presented to ED for cough x2 days associated with shortness of breath. Pt reported her cough is nonproductive, worsening over the last couple of days. Pt denied fever, chills, nausea, vomiting, sore throat, runny nose. Pt was seen at [facility] ED yesterday for similar symptoms, rapid strep was negative pt was discharged with albuterol inhaler, which she stated she has not picked up. Allergies: NKDA Past History - Past Medical History Allergies/Adverse Reactions: Allergies Allergy/AdvReac Type Severity Reaction Status Date / Time No Known Allergies Allergy Verified 07/29/18 01:50 Home Medications: Ambulatory Orders Acetaminophen [Tylenol] 650 mg PO PRN PRN 07/28/18 Albuterol Sulfate Inhaler - [Ventolin HFA Inhaler -] 1 - 2 inh PO Q4H #1 inhaler 07/28/18 Albuterol 0.083% Nebulizer Jess [Ventolin 0.083% Nebulizer Soln -] 1 neb NEB Q4H PRN #30 vial 07/29/18 Benzonatate [Tessalon Pearls -] 100 mg PO BID PRN #10 capsule 07/29/18 Asthma: No Cancer: No Cardiac Disorders: No COPD: No DVT: No Diabetes: No HTN: No Seizures: No Thyroid Disease: No - Surgical History Abdominal Surgery: Yes (HERNIA) - Reproductive History (#): 1 Para: 0 - Immunization History Immunization Up to Date: Yes - Suicide/Smoking/Psychosocial Hx Smoking History: Never smoked Have you smoked in the past 12 months: No Number of Cigarettes Smoked Daily: 1 Information on smoking cessation initiated: No Hx Alcohol Use: No Drug/Substance Use Hx: No Substance Use Type: None Hx Substance Use Treatment: No Review of Systems - Review of Systems Able to Perform ROS?: Yes Comments:: 07/29/18 02:06 General: denied fever, chills, generalized weakness. HEENT: denied sore throat, rhinorrhea, ear pain. Heart: denied chest pain, palpitations, syncope, diaphoresis. Respiratory: admitted to shortness of breath, cough. denied sputum production, hemoptysis. Abdomen: denied abdominal pain, nausea, vomiting, diarrhea, constipation, blood in stool. : denied dysuria, increased urinary frequency, hematuria, urinary incontinence , flank pain. Back: denied back pain. Musculoskeletal: denied joint pain, muscle pain, joint swelling. Neurological: denied headache, dizziness, numbness, tingling, weakness. Skin: denied rash, laceration, abrasion. *Physical Exam - Vital Signs Last Vital Signs Temp Pulse Resp BP Pulse Ox 98.1 F 101 H 24 H 111/85 100 07/29/18 01:51 07/29/18 01:51 07/29/18 01:51 07/29/18 01:51 07/29/18 01:51 - Physical Exam Comments: 07/29/18 02:06 Constitutional: Well-nourished, Well-developed, appearing stated age. HEENT: head is normocephalic, atraumatic. EOMI. PERRLA. bilateral tonsillar swelling, no exudates bilaterally. no posterior pharyngeal erythema. Neck: supple. Full ROM. Heart: regular rhythm. no murmurs, rubs or gallops. Lungs: wheezing bilaterally, poor air entry. speaking full sentences. no labored breathing. Abdomen: soft, nontender. normal bowel sounds. no rebound, guarding, masses. Extremities: peripheral pulses intact. no lower extremity edema. Neurological: CN 2-12 grossly intact. moves all four extremities. Psych: awake, alert, oriented x3. follows commands. answers questions appropriately. Medical Decision Making - Medical Decision Making 07/29/18 02:16 22 year old female with above PMH presented to ED for shortness of breath, cough. Wheezing auscultated on examination. Initial Vital Signs Temp Pulse Resp BP Pulse Ox 98.1 F 101 H 24 H 111/85 100 07/29/18 01:51 07/29/18 01:51 07/29/18 01:51 07/29/18 01:51 07/29/18 01:51 Afebrile. Tachycardic. Tachypneic. No hypotension. No hypoxia on room air. Labs ordered: none Imaging ordered: CXR Medications ordered: duonebx3, tylenol 975 mg PO once 07/29/18 03:08 Pt reported improvement of symptoms. Examination: lungs clear to auscultation. ambulated unassisted well. Pending CXR. 07/29/18 03:[address] Choi's read: no infiltrate. sharp costophrenic angles. no cardiomegaly. no large pneumothorax. Vital Signs Temperature 98.1 F 07/29/18 03:52 Pulse Rate 78 07/29/18 03:52 Respiratory Rate 19 07/29/18 03:52 Blood Pressure 123/81 07/29/18 03:52 O2 Sat by Pulse Oximetry (%) 98 07/29/18 03:52 Afebrile. No tachycardia. No tachypnea. No hypotension. No hypoxia on room air. Results explained to patient, who was instructed to follow up with PCP within 3days. Pt expressed understanding and agreed with plan for care. Pt discharged. Discharge medications: albuterol nebulizer solution, tessalon pearls -Pt reported she has a machine and mask at home. *DC/Admit/Observation/Transfer Diagnosis at time of Disposition: Bronchitis, Wheezing - Discharge Dispostion Disposition: HOME Condition at time of disposition: Stable Decision to Admit order: No - Prescriptions Prescriptions: Albuterol 0.083% Nebulizer Jess [Ventolin 0.083% Nebulizer Soln -] 1 neb NEB Q4H PRN #30 vial PRN Reason: Asthma Benzonatate [Tessalon Pearls -] 100 mg PO BID PRN #10 capsule PRN Reason: Cough - Referrals Referrals: Philip Weiner [Primary Care Provider] - - Patient Instructions Printed Discharge Instructions: DI for Acute Bronchitis Additional Instructions: You were seen today for cough. Your X-ray was normal, there is no pneumonia. I have sent a prescription to your pharmacy for nebulizer solution, use as advised on label. 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 Take tylenol 1000 mg every 6-8 hours as needed for pain/fever. Take ibuprofen 600 mg every 6-8 hours as needed for pain/fever. You can alternate tylenol and ibuprofen, they are not the same medication. Follow up with your primary care doctor within 3 days. Your care is not complete until you follow up. Return to the Emergency Department for chest pain, shortness of breath, lightheadedness, palpitations, fever>104F with tylenol use or any other new, worsening or concerning symptoms. - Post Discharge Activity Forms/Work/School Notes: Back to Work
[2018-07-29] MEDS ORDERED: ACETAMINOPHEN 325 MG TABLET (FP) PO ONE (02:11)
--- NOTE | 2018-07-29 02:20 | PDOC ---
Attending Attestation - Resident Resident Name: Shelly Mckeon - ED Attending Attestation I have performed the following: I have examined & evaluated the patient, The case was reviewed & discussed with the resident, I agree w/resident's findings & plan - HPI HPI: 07/29/18 02:57 22 year old female with PMH bronchitis presented to ED for nonproductive cough x2 days associated with shortness of breath. Pt denied fever, chills, nausea, vomiting, sore throat, runny nose. Pt was seen at [facility] ED yesterday for similar symptoms, rapid strep was negative pt was discharged with albuterol inhaler, which she stated she has not picked up. no xray performed at that time. +sick contacts, son with URI sx. no travel - Physicial Exam PE: 07/29/18 02:57 Agree with the resident's HPI and PE as documented in the electronic medical record. NAD, well appearing, EOMI, PERRL, MMM, nl conjunctiva, anicteric; neck supple. lungs clear, RRR, abdomen soft nontender. Back nontender. STANLEY x4, no focal neuro deficits. No peripheral edema. normal color for ethnicity, WWP. - Medical Decision Making 07/29/18 02:57 See HPI for details. Prior notes reviewed, including admissions, discharges and consultations. Vital signs reviewed, mild tachy and tachypneic, normal sats initially audibly wheezing, since cleared ddx asthma, allergies, pneumonia, URI, viral syndrome. clinically considered but doubt PE or cardiac. ED interventions: duoneb, analgesia, reassess CXR appears clear with normal cardiac silhouette, no focal effusion/edema/ infiltrate. no abx indicated, likely viral URI. repeat VS, normalized ambulatory in department, resting well and comfortable in room, in NAD tolerating PO intake. supportive care, hydration, warm lemon tea. salt gargles must get albuterol nebs rx to pharmacy, with inhaler ready for hand picker from yesterday instructions on use provided Pt to be discharged in stable condition. Patient made aware of clinical impression, treatment recommendations and disposition plan, return precautions discussed (including but not limited to new or persistent/worsening symptoms, pain, fevers, or signs of infection, chest pain, respiratory distress, inability to tolerate oral intake, dehydration, syncope, or neurologic changes) . Follow up with PMD as recommended, follow up information provided, take medications as instructed for duration of time. continue with supportive care, avoid triggers and precipitants. All questions answered to patient's satisfaction and expressed understanding and comfort with this. At the time of discharge, the patient is alert, clinically improved, tolerating po and verbalizes understanding of instructions, satisfied with the care received and felt comfortable with the plan. Patient does not suffer from an acute life- threatening medical condition at this time and is safe for outpatient follow- up. 07/29/18 04:07
[2018-07-29] MEDS ORDERED: ACETAMINOPHEN 325 MG TABLET (FP) ONE (02:34)
[2018-07-29 03:53] VITALS: BP 123/81; PULSE 78
[2018-07-29] MEDS ORDERED: ALBUTEROL SO4 0.083% IH SOL 2.5 MG/3 ML VIAL.NEB. NEB ONE ×2 (04:05→04:15)
== END 2018-07-29 04:29 | disposition home or self-care (01) ==
LOC: JER 01:34
PROC: 3E0F7GC Introduction of Other Therapeutic Substance into Respiratory Tract, Via Natural or Artificial Opening (ICD-10-PCS; principal; 2018-07-29)
DX: J40 Bronchitis, not specified as acute or chronic (principal)
CPT/HCPCS: 71045-TC-FY; 94640; 99282-25